=== PATIENT | female | born 1985 | race Caucasian/White ===

== ENCOUNTER 2021-07-06 13:26 | Outpatient (CLI) | payer BC, SELFPAY ==
--- NOTE | 2021-07-06 13:33 | MM_ITS ---
WS: [id number] DIAGNOSTIC BILATERAL DIGITAL MAMMOGRAM WITH CAD RIGHT breast ultrasound, limited HISTORY: RIGHT BREAST LUMP OUTER QUADRANT COMPARISON: None available. TECHNIQUE: Bilateral craniocaudad, mediolateral oblique, and mediolateral views are submitted. Spot c ompression RIGHT MLO. Computer aided detection utilized. Breast composition: The breasts are extremely dense, which lowers the sensitivity of mammography. Tri angular marker is placed in the upper-outer quadrant of the RIGHT breast. Very dense fibroglandular t issue. No discrete mass identified. No distortion. The remaining breasts are negative for acute proce ss. There are a few scattered calcifications. RIGHT breast: Ultrasound directed to the upper outer quadrant of the RIGHT breast. At 10:00, near the areolar is a complex cystic mass measuring 1.0 x 0.5 x 0.9 cm with no increased vascularity. There are a few addit ional scattered smaller cysts. MM/[id number] IMPRESSION: BI-RADS: 3-Probably Benign FOLLOW UP: 6 Month Follow-up Palpable area upper-outer quadrant of the RIGHT breast corresponds to a cluster of cysts or a complex cyst. As this is not a completely simple cyst recommend ultrasound follow-up in 6 months to document continued stability.
== END 2021-07-06 13:27 | disposition home or self-care (01) ==
LOC: RADSHAW 13:26
PROVIDERS: PCP Nurse Practitioner Family; Visit Provider Nurse Practitioner Family
DX: N63.11 Unspecified lump in the right breast, upper outer quadrant (principal); N93.9 Abnormal uterine and vaginal bleeding, unspecified; N94.10 Unspecified dyspareunia; N83.201 Unspecified ovarian cyst, right side
CPT/HCPCS: 76642; 76830; 77066; 84443; 85025

== ENCOUNTER → 2021-09-07 13:00 | Outpatient (BNVA) | payer BC, SELFPAY | PROVIDERS: PCP Nurse Practitioner Family; Visit Provider Nurse Practitioner Women's Health | DX: Q50.1 Developmental ovarian cyst (principal); N83.312 Acquired atrophy of left ovary; N83.311 Acquired atrophy of right ovary | CPT/HCPCS: 76830 ==

== ENCOUNTER 2023-06-19 08:47 | Outpatient (CLI) | payer OTHER, SELFPAY ==
[2023-06-19 09:39] LABS: SARS Covid-2 Antigen negative (Negative)
== END 2023-06-19 08:48 | disposition home or self-care (01) ==
PROVIDERS: PCP Nurse Practitioner Family; Visit Provider Internal Medicine
DX: Z11.52 Encounter for screening for COVID-19 (principal); Z20.822 Contact with and (suspected) exposure to COVID-19
CPT/HCPCS: 87426